=== PATIENT | male | born 1970 | race Two or more races ===

== ENCOUNTER 2022-07-14 08:23 | Outpatient (CLI) | payer OTHER | END 2022-07-14 08:28 | disposition home or self-care (01) | LOC: PPH VACUNA 08:23 | PROVIDERS: ATTEND Emergency Medicine Pediatric Emergency Medicine | DX: Z23 Encounter for immunization (principal) ==

== ENCOUNTER 2024-01-03 10:33 | Outpatient (CLI) | payer OTHER | END 2024-01-03 10:35 | disposition home or self-care (01) | LOC: RAD 10:33 | PROVIDERS: ATTEND Emergency Medicine | DX: M54.50 Low back pain, unspecified (principal) ==

== ENCOUNTER 2024-06-26 08:38 | Outpatient (CLI) | payer OTHER | END 2024-06-26 08:42 | disposition home or self-care (01) | LOC: RAD 08:38 | DX: M25.532 Pain in left wrist (principal); G56.02 Carpal tunnel syndrome, left upper limb; M54.50 Low back pain, unspecified; M54.10 Radiculopathy, site unspecified ==

== ENCOUNTER 2024-06-28 13:50 | Outpatient (CLI) | payer OTHER | END 2024-06-28 13:58 | disposition home or self-care (01) | LOC: MRI 13:50 | DX: M54.50 Low back pain, unspecified (principal); M54.10 Radiculopathy, site unspecified | CPT/HCPCS: 73218 ==